=== PATIENT | female | born 1985 | race Caucasian/White ===

== ENCOUNTER 2016-08-01 19:31 | Emergency (ER) | payer SELFPAY ==
[~2016-08-01] VITALS: Ht 165.1 cm; Wt 63.4 kg
[2016-08-01] MEDS ORDERED: ULTRAM50 M1 PO (19:49)
[2016-08-01] MEDS ORDERED: AMOXICILLIN500 MG PO (19:49)
[2016-08-01 20:07] VITALS: BP 119/88
== END 2016-08-01 20:07 | disposition home or self-care (01) | DRG 159 ==
LOC: ED 19:31
DX: K04.7 Periapical abscess without sinus (principal); F17.210 Nicotine dependence, cigarettes, uncomplicated; S02.5XXA Fracture of tooth (traumatic), initial encounter for closed fracture; R68.84 Jaw pain